=== PATIENT | male | born 1960 | race Caucasian/White ===

== ENCOUNTER → 2016-12-30 | Outpatient (CLI) | payer OTHER ==
--- NOTE | 2016-12-30 10:57 | XR ---
EXAMINATION TYPE: XR shoulder complete LT DATE OF EXAM: 12/30/2016 10:51 AM CLINICAL HISTORY: pain COMPARISON: NONE TECHNIQUE: Three views of the left shoulder are obtained. FINDINGS: There is no acute fracture/dislocation evident. The acromioclavicular and glenohumeral jesse int spaces appear within normal limits. The visualized ribs are intact and unremarkable. IMPRESSION: 1. There is no acute fracture or dislocation. ICD 10 NO FRACTURE, INITIAL EVALUATION
== END | disposition home or self-care (01) ==
LOC: RADXRMAIN 10:28
PROVIDERS: ATTEND Emergency Medicine
DX: S43.402A Unspecified sprain of left shoulder joint, initial encounter (principal)

== ENCOUNTER → 2017-01-02 | Outpatient (CLI) | payer OTHER ==
--- NOTE | 2017-01-02 23:10 | MR ---
EXAMINATION TYPE: MR shoulder LT wo con DATE OF EXAM: 01/02/2017 6:56 PM COMPARISON: NONE HISTORY: Left shoulder pain, injury TECHNIQUE: Multiplanar, multisequence imaging of the left shoulder is performed without contrast. FINDINGS: The biceps tendon is intact. Subscapularis tendon is intact. There is a mild shoulder joint effusion. There is abnormal increased signal in the supraspinatus tendon near the insertion of the greater tub erosity of the humerus. There is no retraction. The glenoid katelin appear intact. There is mild spurri ng at the AC joint. There is mild subacromial impingement on the supraspinatus tendon. IMPRESSION: There is a full-thickness tear of the supraspinatus tendon at the greater tuberosity of the humerus. There is no retraction. Mild shoulder joint effusion. There is fluid along the subscapularis tendon. Mild subacromial impinge ment with spurring at the AC joint.
== END | disposition home or self-care (01) ==
LOC: RADMRIMAIN 16:41
PROVIDERS: ATTEND Emergency Medicine
DX: M25.812 Other specified joint disorders, left shoulder (principal); M25.412 Effusion, left shoulder

== ENCOUNTER → 2019-05-27 | Outpatient (CLI) | payer OTHER ==
--- NOTE | 2019-05-27 06:41 | MR ---
EXAMINATION TYPE: MR shoulder RT wo con DATE OF EXAM: 05/27/2019 COMPARISON: NONE HISTORY: Rotator cuff tear, right shoulder per order. Pain with difficulty raising arm overhead after work injury 2 weeks ago per patient. TECHNIQUE: Multiplanar, multisequence imaging of the right shoulder is performed without contrast. FINDINGS: Rotator Cuff: There is full thickness retracted tear of supraspinatus tendon to level of distal clavi carlos seen coronal image 13. Full-thickness retracted tear of infraspinatus tendon is also identified t o the similar level. Teres minor tendon remains intact. Subscapularis tendon is intact. Rotator cuff muscle bulk is preserved. Acromioclavicular Joint: Prominent fluid at the acromioclavicular joint causes superior bulging or ge yser sign. Moderate spurring of the acromion is noted laterally and inferiorly. Glenohumeral Joint: High riding humeral head is seen consistent with underlying instability. Moderate to severe superior narrowing with moderate joint effusion. Biceps Tendon: The long head of biceps is felt normal location within bicipital groove with increased signal suggesting tearing. Bone marrow signal: No focal abnormal marrow signal is appreciated. Other: No additional significant abnormality is appreciated. IMPRESSION: Massive full thickness retracted acute tears of the supraspinatus and infraspinatus tendo ns with instability as there is high riding humeral head present.
== END | disposition home or self-care (01) ==
LOC: RADMRIMAIN 05:40
PROVIDERS: ATTEND Family Medicine
DX: S46.011A Strain of muscle(s) and tendon(s) of the rotator cuff of right shoulder, initial encounter (principal)